=== PATIENT | female | born 1945 | race Caucasian/White ===

== ENCOUNTER 2018-07-12 08:10 | Outpatient (CLI) | payer MEDICARE, OTHER ==
--- NOTE | 2018-07-12 11:26 | MRI ---
MRI THORACIC SPINE: DATE: 07/12/2018. PROVIDED CLINICAL HISTORY: Thoracic disk herniation. FINDINGS: Comparison is made with the examination performed at [facility] 06/18/2017. Thoracic align ment remains normal. Thoracic vertebral body heights appear stable. Vertebroplasty changes involvin g T7 and T8 are again noted. No focal concerning regional marrow signal abnormality is evident. The thoracic spinal cord demonstrates normal signal and morphology. There is no significant central can al or foraminal narrowing apparent involving the thoracic spine. Perineural cyst formation is seen o n the left at T9. Multilevel costovertebral junction degenerative changes are seen. IMPRESSION: Stable exam. POS: [facility]
== END 2018-07-12 08:11 | disposition home or self-care (01) ==
LOC: TBSIIMAG 08:10
PROVIDERS: ATTEND Anesthesiology Pain Medicine
DX: M51.24 Other intervertebral disc displacement, thoracic region (principal)
CPT/HCPCS: 72146